=== PATIENT | male | born 1960 | race Caucasian/White ===

== ENCOUNTER 2016-06-22 13:22 | Day surgery (SDC) | payer BC ==
[~2016-06-22] VITALS: Ht 167.6 cm; Wt 76.5 kg
[2016-06-22 14:29] VITALS: Ht 167.6 cm; Wt 76.5 kg
[2016-06-22 14:49] VITALS: BP 125/80; PULSE 86; RESP 16
[2016-06-22 16:37] VITALS: BP 134/87; PULSE 79; RESP 20
--- NOTE | 2016-06-24 08:41 | GILP ---
DATE OF PROCEDURE: 06/22/2016 NAME OF PROCEDURE: Esophagogastroduodenoscopy with biopsies. SURGEON: Jade Ramirez MD. PREOPERATIVE DIAGNOSIS: POSTOPERATIVE DIAGNOSIS: DESCRIPTION OF PROCEDURE: BRIEF HISTORY AND INDICATIONS: The patient is being evaluated for abdominal pain, dyspepsia. PREMEDICATION: Monitored anesthesia care by anesthesiologist. INSTRUMENT USED: Olympus endoscope. TECHNIQUE: After informed consent, with the patient/relatives understanding the procedure, its indications, potential risks and complications, including but not limited to: allergic reaction, bleeding, perforation or infection, and after all pertinent questions were answered to the patients satisfaction, the patient/relatives signed witnessed informed consent. Following this, premedication was administered slowly IV push under careful cardiovascular and respiratory monitoring with pulse oximetry, automatic blood pressure and social work therapist. Once the sedative effect was achieved the patient was place in the left lateral decubitus, the panendoscope was introduced and advanced under visual control. Careful examination of the upper gastrointestinal tract, both on insertion as well as withdrawal of the instrument disclosed the following findings: ESOPHAGUS: The distal esophagus showed significant erythema and edema in the mucosa at the EG junction. Biopsies were obtained to rule out H pylori infection. STOMACH: Upon entrance to the stomach air was insufflated, the gastric burgos distended normally. The mucosa of the fundus, body and antrum of the stomach was carefully examined, shows erythema and edema in the mucosa of a moderate degree. Biopsies were obtained to rule out H. pylori infection.. PYLORUS: The pylorus appears patent and within normal limits, with no evidence of gastric outlet obstruction. DUODENUM: The duodenal mucosa was carefully examined in the duodenal bulb as well as the second portion of the duodenum and appears unremarkable with no evidence of duodenitis, ulcer or neoplasm. The instrument was then withdrawn, the patient tolerated the procedure well and was transfer out of the endoscopy suite awake, and in good condition to continue recovery under observation IMPRESSION: 1. Erosive esophagitis 2. Rule out Abbasi esophagus, biopsies obtained. 3. Gastritis, rule out Helicobacter pylori infection, biopsies obtained. PLAN: The patient will be treated with PPIs. Pathology will be reviewed as soon as available. Further recommendations will depend on the patient's clinical course. Dictated By: JADE RAMIREZ MS/SONIA Conf#: [id number] DID#: [id number] CC: Jade Ramirez;*EndCC* MTDD
--- NOTE | 2016-06-24 08:51 | GILP ---
DATE OF PROCEDURE: 06/22/2016 NAME OF PROCEDURE: Colonoscopy with polyp ablation. SURGEON: Jade Ramirez MD. PREOPERATIVE DIAGNOSIS(ES) POSTOPERATIVE DIAGNOSIS(ES) HISTORY AND INDICATIONS: PREMEDICATION: Monitored anesthesia care by anesthesiologist. INSTRUMENT USED: Olympus colonoscope. PREPARATION: Adequate. TECHNIQUE: After informed consent, with the patient/relatives understanding the procedure, its indic ations potential risks and complications, including but not limited to: allergic reaction, bleeding, perforation, infection, missed lesions and after all pertinent questions were answered to the patie nt's satisfaction, the patient/relatives signed the witnessed informed consent. Following this, premedication was administered slowly IV push by under careful cardiovascular and re spiratory monitoring with pulse oximetry, automatic blood pressure and electronic device monitor. Once the sedativ e effect was achieved, the patient was placed in the left lateral decubitus position, digital rectal examination was performed. The colonoscope was then introduced and advanced under visual control th roughout all segments of the colon including: the rectum, sigmoid, descending colon, splenic flexure , transverse colon, hepatic flexure, ascending colon and finally reaching the cecum which was clearl y identified by transillumination, finger indentation and the ileocecal valve. Careful examination o f the mucosa of the lower gastrointestinal tract both on insertion as well as withdrawal of the inst rument disclosed the following findings: Rectal Examination: No evidence of perirectal disease, no masses. Colonic Mucosa: There is a 3 mm polyp in the sigmoid colon which was ablated. There is an additiona l 3 mm polyp in the ascending colon which was also ablated with biopsy forceps. The remainder of th e colonic mucosa unremarkable. The ileocecal valve was clearly identified as was the appendiceal or ifice. The instrument was withdrawn reexamining mucosa in detail. No additional abnormalities are noted with exception of moderate size internal hemorrhoids. The patient tolerated the procedure well and was transferred out of the Endoscopy Suite awake and in good condition to continue recovery under observation. IMPRESSION: Moderate sized internal: 1. A 3 mm polyp in ascending colon ablated. 2. A 3 mm polyp in the sigmoid colon ablated. 3. Moderate sized internal hemorrhoids. PLAN: Pathology will be reviewed as soon as available. Further recommendation will depend on patie nt's clinical course. Surveillance colonoscopy in 5 years is recommended. Annual Hemoccult stool t esting is recommended as well. Dictated By: JADE RAMIREZ MS/NTS Conf#: [id number] DID#: [id number] CC: Jade Ramirez;*EndCC*
== END 2016-06-22 16:37 | disposition home or self-care (01) ==
LOC: GIL 13:22
PROVIDERS: ATTEND Internal Medicine Gastroenterology
DX: Z12.11 Encounter for screening for malignant neoplasm of colon (principal); D12.2 Benign neoplasm of ascending colon; D12.5 Benign neoplasm of sigmoid colon; K64.8 Other hemorrhoids; K29.70 Gastritis, unspecified, without bleeding; E66.9 Obesity, unspecified; Z68.27 Body mass index [BMI] 27.0-27.9, adult
CPT/HCPCS: 43239; 45380; 88305; 88312; 88313; Z7610